=== PATIENT | male | born 1985 | race Caucasian/White ===

== ENCOUNTER → 2017-07-22 | Outpatient (CLI) | payer OTHER | LOC: CIMAGING 14:34 | PROVIDERS: ATTEND Physical Medicine & Rehabilitation | DX: S62.632D Displaced fracture of distal phalanx of right middle finger, subsequent encounter for fracture with routine healing (principal) | CPT/HCPCS: 73130-PO ==

== ENCOUNTER 2018-06-09 08:59 | Emergency (ER) | payer MEDICAID, OTHER ==
[2018-06-09] MEDS ORDERED: LORazepam 2 MG/ML INJ IVP ONE (09:25)
[2018-06-09] MEDS ORDERED: NS 1,000 ML IV ONE (09:25)
--- NOTE | 2018-06-09 09:25 | EDPHY ---
H & P Time Seen by Provider: 06/09/18 09:04 HPI/ROS: CHIEF COMPLAINT: Heroin withdrawal HISTORY OF PRESENT ILLNESS: 32-year-old male presents to the emergency department with heroin withdrawal. The patient has been injecting heroin up until about 48 hr ago. He would like to quit stop using drugs. [facility] and they sent him to the emergency department for evaluation. The patient states his last use was 48 hr ago. He has felt nauseous. He describes pain all over his body. He has not been able to eat or drink anything. He has urinated very little. He denies pain in his chest or difficulty breathing. Denies abdominal pain. He does feel nauseous although no vomiting or diarrhea. Denies any other substance abuse. REVIEW OF SYSTEMS: Constitutional: No fever, no chills. Eyes: No double or blurry vision. ENT: No sore throat. Respiratory: No cough, no shortness of breath. Cardiac: No chest pain. Gastrointestinal: Nausea. No abdominal pain, vomiting or diarrhea. Genitourinary: No dysuria. Musculoskeletal: Neck and back pain Skin: No rashes. Neurological: headache. Past Medical/Surgical History: Substance abuse Social History: Single Smoking Status: Current every day smoker Physical Exam: General Appearance: Alert, no distress. Tremulous. Anxious. Eyes: Pupils equal and round. Extraocular motions are all intact. ENT: Mouth: Mucous membranes moist. Respiratory: No wheezing, rhonchi, or rales, lungs are clear to auscultation. Cardiovascular: Regular rate and rhythm. Tachycardic. Gastrointestinal: Abdomen is soft and nontender, no masses, no rebound or guarding, bowel sounds normal. Neurological: Alert and oriented x 3, cranial nerves II through XII grossly intact Skin: Warm and dry, no rashes. Musculoskeletal: Nontender to palpate along the cervical, thoracic or lumbar spine. Neck is supple. Extremities: Full range of motion and no peripheral edema. Psychiatric: Patient is oriented X 3, there is no agitation. Constitutional: Initial Vital Signs Temperature (C) 37 C 06/09/18 09:01 Heart Rate 111 H 06/09/18 09:01 Respiratory Rate 18 06/09/18 09:01 Blood Pressure 131/93 H 06/09/18 09:01 O2 Sat (%) 98 06/09/18 09:01 O2 Delivery Mode Room Air Allergies/Adverse Reactions: No Known Allergies Allergy (Unverified 06/09/18 09:01) Home Medications: Medication Instructions Recorded [id number] 06/09/18 Medical Decision Making ED Course/Re-evaluation: 32-year-old male presents to the emergency department with heroin withdrawal. The patient was initially seen at the addiction recovery [facility] and they sent to the emergency department for evaluation. The patient tells me that he has pain all over his body and is unable to eat or drink anything because of his extreme nausea. He has urinated very little. IV was established and laboratory studies were drawn. Patient was given 1 mg Ativan IV and IV normal saline. Patient is feeling much better. Laboratory studies are all within normal limits. He will be discharged to the addiction recovery Center with a take- home pack of Librium. Differential Diagnosis: Including but not limited to electrolyte abnormality, dehydration, withdrawal, substance abuse - Data Points Laboratory Results: 06/09/18 09:53 POC Hgb 17.3 gm/dL gm/dL (13.7-17.5) POC Hct 51 % % (40-51) POC Sodium 139 mEq/L mEq/L (135-145) POC Potassium 4.8 mEq/L mEq/L (3.3-5.0) POC Chloride 102 mEq/L mEq/L (97-110) POC BUN 23 mg/dL mg/dL (7-23) POC Creatinine 0.8 mg/dL mg/dL (0.7-1.3) POC Glucose 96 mg/dL mg/dL (70-100) Medications Given: Discontinued Medications Chlordiazepoxide (Librium 25 Mg Prepack#6) 1 btl TAKEHOME EDNOW ONE Stop: 06/09/18 10:52 Last Admin: 06/09/18 10:57 Dose: 1 btl Sodium Chloride (Ns) 1,000 mls @ 0 mls/hr IV ONCE ONE PRN Reason: Wide Open Stop: 06/09/18 09:26 Last Admin: 06/09/18 09:46 Dose: 1,000 mls Lorazepam (Ativan Injection) 1 mg IVP EDNOW ONE Stop: 06/09/18 09:26 Last Admin: 06/09/18 09:46 Dose: 1 mg Point of Care Test Results: Chemistry 06/09/18 09:53 POC Sodium 139 mEq/L mEq/L (135-145) POC Potassium 4.8 mEq/L mEq/L (3.3-5.0) POC Chloride 102 mEq/L mEq/L (97-110) POC BUN 23 mg/dL mg/dL (7-23) POC Creatinine 0.8 mg/dL mg/dL (0.7-1.3) POC Glucose 96 mg/dL mg/dL (70-100) ISTAT H&H 06/09/18 09:53 POC Hgb 17.3 gm/dL gm/dL (13.7-17.5) POC Hct 51 % % (40-51) Departure - Departure Disposition: Home, Routine, Self-Care Clinical Impression: Heroin withdrawal Condition: Good Instructions: Chlordiazepoxide (By mouth), Narcotic Abuse (ED) Additional Instructions: You are being discharged to the addiction recovery center under with a take- home pack of Librium. Referrals: [facility] [Outside] - As per Instructions
[2018-06-09] MEDS ORDERED: CHLORDIAZEPOXIDE 25MG PREPK#6 BTL TAKEHOME ONE (10:51)
[2018-06-09 11:07] VITALS: BP 114/80
== END 2018-06-09 11:06 | disposition home or self-care (01) ==
DX: F11.23 Opioid dependence with withdrawal (principal); F17.200 Nicotine dependence, unspecified, uncomplicated
CPT/HCPCS: 82435-PO; 82565-PO; 82947-PO; 84132-PO; 84295-PO; 84520-PO; 85014-PO; 96374; J2060